=== PATIENT | male | born 1960 | race Caucasian/White ===

== ENCOUNTER 2023-03-31 09:29 | Emergency (ER) | payer OTHER ==
[~2023-03-31] VITALS: Ht 172.7 cm; Wt 82.0 kg
[2023-03-31 09:43] VITALS: BP 198/108; PULSE 100; RESP 16; TEMP 98; O2SAT 98
[2023-03-31] MEDS ORDERED: BACITRACIN ZINC OINT UDPKT TOP ONE (10:30)
[2023-03-31] MEDS ORDERED: TETANUS, DIPHTHERIA, PERTUSSIS VAC/PF 0.5ML (>10YR OLD) IM ONE ×2 (10:30→12:30)
[2023-03-31] MEDS ORDERED: LIDOCAINE HCL/PF 1% 10 MG/ML 5ML VIAL INFIL ONE (10:30)
== END 2023-03-31 12:24 | disposition home or self-care (01) ==
LOC: ER 10:29
DX: S01.112A Laceration without foreign body of left eyelid and periocular area, initial encounter (principal); W18.39XA Other fall on same level, initial encounter; Y93.89 Activity, other specified; Y92.89 Other specified places as the place of occurrence of the external cause; Y99.8 Other external cause status
CPT/HCPCS: 90715; 12014; 90471; 99283; J3490; Z7610 ×2; 99284